=== PATIENT | female | born 1970 | race Two or more races ===

== ENCOUNTER → 2024-11-09 | Day surgery (SDC) | payer OTHER ==
[~2024-11-09] MED LIST: ABATINEX680 MG PO; CARDIZEM120 MG PO; DICY20TA PO; ESTAZOLAM2 MG PO; LEVSIN0.125 MG PO; LIPITOR40 M1 PO; MONTELUKAST SODI4 M1; PEPCID AC20 MG
== END | disposition home or self-care (01) ==
LOC: ADM 11-01 13:00 → AMB-ENDOS 06:04
PROVIDERS: ATTEND Colon & Rectal Surgery
DX: K57.32 Diverticulitis of large intestine without perforation or abscess without bleeding (principal); K57.30 Diverticulosis of large intestine without perforation or abscess without bleeding; K58.9 Irritable bowel syndrome, unspecified

== ENCOUNTER 2024-12-28 11:15 | Inpatient (IN) | payer OTHER ==
[~2024-12-28] VITALS: Ht 170.2 cm; Wt 104.3 kg
[2025-01-20] MEDS ORDERED: LIPITOR40 M1 PO (11:33)
[2025-01-20] MEDS ORDERED: ESTAZOLAM2 MG PO (11:34)
[2025-01-20] MEDS ORDERED: PEPCID AC20 MG (11:34)
[2025-01-20] MEDS ORDERED: CARDIZEM120 MG PO (11:34)
[2025-01-20] MEDS ORDERED: LEVSIN0.125 MG PO (11:35)
[2025-01-20] MEDS ORDERED: DICY20TA PO (11:35)
[2025-01-20] MEDS ORDERED: MONTELUKAST SODI4 M1 (11:35)
[2025-01-20] MEDS ORDERED: ABATINEX680 MG PO (11:36)
[2025-01-20 11:40] VITALS: BP 113/70
[2025-02-02] MEDS ORDERED: LIDOCAINE HCL 1%/EPINEPHRINE 20ML VIAL IJ ONE (08:30)
[2025-02-02] MEDS ORDERED: BUPIVACAINE HCL/PF 0.25% 30ML VIAL InF ONE (08:30)
[2025-02-02] MEDS ORDERED: METRONIDAZOLE/SODIUM CHLORIDE 500 MG/100 ML PIGGYBACK IV ONE (08:30)
[2025-02-02] MEDS ORDERED: CEFTRIAXONE SODIUM 2,000 MG VIAL IV ONE (08:30)
[2025-02-02] MEDS ORDERED: MORPHINE SULFATE 4 MG/ML VIAL IV ONE ×2 (09:40→10:10)
[2025-02-02] MEDS ORDERED: SUGAMMADEX SODIUM 200 MG/2 ML VIAL IV ONE (09:45)
[2025-02-02] MEDS ORDERED: MEPERIDINE HCL/PF 50 MG/ML VIAL IV SCH (10:53)
[2025-02-02] MEDS ORDERED: RINGERS SOLUTION,LACTATED 1,000 ML IV SCH (11:00)
[2025-02-02] MEDS ORDERED: ONDANSETRON HCL 2 MG/ML VIAL IV PRN (11:00)
[2025-02-02] MEDS ORDERED: DEXTROSE 50 % IN WATER 0.5 G/ML VIAL IV PRN (11:00)
[2025-02-02 11:54] LABS: BASO % 0.2 % (0.1-1.2); EOS # 0.01 (0.04-0.54); EOS % 0.1 % (0.7-7.0); LYMPH # 1.02 (1.18-3.74); LYMPH % 7.0 % (19.3-53.1); MEAN PLATELET VOLUME 12.30 fl (9.4-12.4); MONO # 0.79 (0.24-0.82); MONO % 5.4 % (4.7-12.5); NEUT # 12.77 (1.56-6.13); NEUT % 87.0 % (34.0-71.1); RED CELL DISTRIBUTION WIDTH 13.7 % (11.6-14.4)
[2025-02-02] MEDS ORDERED: HYOSCYAMINE SULFATE 0.125 MG TAB.SUBL SL SCH (13:00)
[2025-02-02] MEDS ORDERED: SIMETHICONE 125 MG CAPSULE PO SCH (13:00)
[2025-02-02 13:24] VITALS: BP 126/81; O2SAT 96
[2025-02-02] MEDS ORDERED: ACETAMINOPHEN 500 MG GEL..CAP PO SCH (14:00)
[2025-02-02 16:00] VITALS: BP 119/25; O2SAT 95
[2025-02-02] MEDS ORDERED: METOCLOPRAMIDE HCL 5 MG/ML VIAL IV SCH (17:00)
[2025-02-02] MEDS ORDERED: GABAPENTIN 300 MG CAPSULE PO SCH (17:00)
[2025-02-02] MEDS ORDERED: CELECOXIB 200 MG CAPSULE PO SCH (17:00)
[2025-02-02] MEDS ORDERED: POLYETHYLENE GLYCOL 3350 17 GM BLIST.PACK PO SCH (17:00)
[2025-02-02] MEDS ORDERED: FAMOTIDINE/PF 20 MG/2 ML VIAL IV PUSH SCH (21:00)
[2025-02-03 00:42] VITALS: BP 121/69; O2SAT 98
[2025-02-03 08:00] VITALS: BP 96/61; O2SAT 95
[2025-02-03 08:46] LABS: BASO % 0.5 % (0.1-1.2); EOS # 0.06 (0.04-0.54); EOS % 0.7 % (0.7-7.0); LYMPH # 1.49 (1.18-3.74); LYMPH % 16.8 % (19.3-53.1); MEAN PLATELET VOLUME 13.00 fl (9.4-12.4); MONO # 0.94 (0.24-0.82); MONO % 10.6 % (4.7-12.5); NEUT # 6.31 (1.56-6.13); NEUT % 71.2 % (34.0-71.1); RED CELL DISTRIBUTION WIDTH 13.8 % (11.6-14.4)
[2025-02-03] MEDS ORDERED: LACTULOSE 20 G/30 ML BLIST.PACK PO SCH (09:00)
[2025-02-03] MEDS ORDERED: DILTIAZEM HCL 120 MG CAP.SR.24H PO SCH (09:00)
[2025-02-03] MEDS ORDERED: ATORVASTATIN CALCIUM 40 MG TABLET PO SCH (09:00)
[2025-02-03] MEDS ORDERED: LACTOBACILLUS ACIDOPHILUS 1 CAP CAP PO SCH (09:00)
[2025-02-03 09:31] LABS: BUN CREA RATIO 14.0 (7.0-25.0); CREATININE SERUM 0.63 mg/dL (0.55-1.02); GFR 97.75; GLUCOSE FASTING 87.0 mg/dL (65-100); OSMOLALITY SERUM 283.0 MOSM/KG (275-295)
[2025-02-03] MEDS ORDERED: POTASSIUM CHLORIDE IN WATER 100 ML IV NR (15:00)
[2025-02-03 16:00] VITALS: BP 93/66; O2SAT 97
[2025-02-03] MEDS ORDERED: ENOXAPARIN SODIUM 40 MG/0.4 ML SYRINGE SUBCUTANEO SCH (17:00)
[2025-02-04 07:15] LABS: BUN CREA RATIO 13.0 (7.0-25.0); CREATININE SERUM 0.69 mg/dL (0.55-1.02); GFR 88.01; GLUCOSE FASTING 85.0 mg/dL (65-100); OSMOLALITY SERUM 290.0 MOSM/KG (275-295)
[2025-02-04 08:00] VITALS: BP 131/80; O2SAT 98
[2025-02-04] MEDS ORDERED: ENOXAPARIN SODIUM 40 MG/0.4 ML SYRINGE SUBCUTANEO SCH (09:00)
== END 2025-02-04 11:44 | disposition home or self-care (01) | DRG 330 ==
LOC: SURH 01-25 10:15 → O/R 02-02 08:31 → SURH 02-02 08:31
PROVIDERS: Internal Medicine; ADMIT Colon & Rectal Surgery; ATTEND Colon & Rectal Surgery
PROC: 0DBP4ZZ Excision of Rectum, Percutaneous Endoscopic Approach (ICD-10-PCS; 2025-02-02)
PROC: 0DJD8ZZ Inspection of Lower Intestinal Tract, Via Natural or Artificial Opening Endoscopic (ICD-10-PCS; 2025-02-02)
PROC: 0DTN4ZZ Resection of Sigmoid Colon, Percutaneous Endoscopic Approach (ICD-10-PCS; principal; 2025-02-02 11:30)
DX: K57.20 Diverticulitis of large intestine with perforation and abscess without bleeding (principal); K92.1 Melena